=== PATIENT | female | born 1985 | race African-American/Black ===

== ENCOUNTER 2016-05-16 14:14 | Observation (INO) | payer MEDICAID ==
[~2016-05-16] VITALS: Ht 165.1 cm; Wt 84.8 kg
[2016-05-16 14:31] VITALS: BP 127/80
== END 2016-05-16 18:01 | disposition home or self-care (01) | DRG 566 ==
LOC: ER 14:16 → INTOOBSV 14:30 → LDRP 14:30 → ER 14:35 → LDRP 16:15
PROVIDERS: ADMIT Specialist; ATTEND Specialist
DX: O26.893 Other specified pregnancy related conditions, third trimester (principal); O62.9 Abnormality of forces of labor, unspecified; M54.9 Dorsalgia, unspecified; R10.9 Unspecified abdominal pain; Z3A.37 37 weeks gestation of pregnancy; W19.XXXA Unspecified fall, initial encounter; Y93.89 Activity, other specified; Y92.89 Other specified places as the place of occurrence of the external cause; Y99.8 Other external cause status
CPT/HCPCS: 59025; 76815; 81002; 99285; G0378

== ENCOUNTER 2016-06-07 11:05 | Inpatient (IN) | payer MEDICAID ==
[~2016-06-07] VITALS: Ht 1 cm; Wt 86.6 kg
[2016-06-07] MEDS ORDERED: LACT. RINGERS/OXYTOCIN 20UNITS 1,000 ML IV SCH (12:03)
[2016-06-07] MEDS ORDERED: WITCH HAZEL-GLYCERIN PAD TOP PRN (12:15)
[2016-06-07] MEDS ORDERED: LIDOCAINE 2%HCL (LOCAL ANESTH.) INJ 20ML MDV IJ ONE ×2 (12:15→22:30)
[2016-06-07] MEDS ORDERED: NALBUPHINE HCL 10 MG/1ml INJECTION IV PRN (12:15)
[2016-06-07] MEDS ORDERED: PHISODERM TOP SOLN 240ML BTL TOP PRN (12:15)
[2016-06-07] MEDS ORDERED: DERMOPLAST 60ML BOTTLE TOP PRN (12:15)
[2016-06-07 13:31] LABS: Basophils # (auto) 0 uL; Basophils % (auto) 0.7 % (0.0-2.0); Eosinophils # (auto) 0 uL; Eosinophils % (auto) 0.3 % (0.0-7.0); Hematocrit 30.1 % (36.0-46.0); Hemoglobin 9.9 g/dL (12.2-16.2); Lymphocytes # (auto) 1.4 uL; Lymphocytes % (auto) 20.5 % (10.0-50.0); Mean Corpuscular Hemoglobin 28.1 pg (28.0-32.0); Mean Corpuscular Hgb Conc. 32.9 g/dL (32.0-36.0); Mean Corpuscular Volume 85.4 fL (80.0-100.0); Mean Platelet Volume 8.3 fL (7.4-10.4); Monocytes # (auto) 0.6 uL; Monocytes % (auto) 8.9 % (0.0-12.0); Neutrophils # (auto) 4.6 uL; Neutrophils % (auto) 69.6 % (37.0-80.0); Platelet Count (auto) 218 10^3/uL (140-450); Red Cell Distribution Width 14.2 % (11.6-16.0); White Blood Cell 6.6 10^3/uL (4.4-10.8)
[2016-06-07 13:45] LABS: Partial Thromboplastin Time 25.3 sec (22.64-33.71); Prothrombin Time 9.6 sec (9.37-12.3)
[2016-06-07 13:46] LABS: INR 0.89 (0.9-1.15)
[2016-06-07 14:14] LABS: BUN/Creatinine Ratio 10.2; Potassium 3.7 mmol/L (3.5-5.1)
[2016-06-07 14:15] LABS: Albumin 2.3 g/dL (3.4-5.0); Bilirubin, Total 0.3 mg/dL (0.2-1.0); Calcium 7.9 mg/dL (8.5-10.1); Total Protein 6.6 g/dL (6.4-8.2)
[2016-06-07] MEDS ORDERED: PENICILLIN G POT 5MIL/D5 50ML 50 ML IV ONE ×2 (14:29→14:30)
[2016-06-07] MEDS: PENICILLIN G POTASSIUM 2,500,000 UNITS in D5W 5% 50 ML IV SCH ×2 (18:46→22:30)
[2016-06-07 19:10] LABS: Urine Bilirubin Negative (Negative); Urine Blood Negative /uL (Negative); Urine Color Yellow (Yellow); Urine Glucose Normal (Normal); Urine Nitrite Negative (Negative); Urine RBC 3 /hpf (0 - 4); Urine Squamous Epithelial Cell MOD /hpf (<5); Urine Urobilinogen Normal (Negative); Urine pH 6.5 (5.0-8.0)
[2016-06-07 19:11] LABS: Urine Ketone 1+ (Negative)
[2016-06-07] MEDS: LACTATED RINGER'S 1,000 ML IV SCH (21:40)
[2016-06-07] MEDS ORDERED: METHYLERGONOVINE MALEATE 0.2 MG/ML AMP IM PRN (22:30)
[2016-06-07] MEDS ORDERED: CARBOPROST TROMETHAMINE 250 MCG/1ML VIAL IM PRN (22:30)
[2016-06-07] MEDS ORDERED: BUTORPHANOL TARTRATE 2 MG/1 ML VIAL IV PRN (23:15)
[2016-06-08] MEDS ORDERED: IBUPROFEN 600 MG TAB PO ONE (02:09)
[2016-06-08] MEDS: PENICILLIN G POTASSIUM 2,500,000 UNITS in D5W 5% 50 ML IV SCH (02:30)
[2016-06-08] MEDS ORDERED: LACT. RINGERS/OXYTOCIN 20UNITS 500 ML IV ONE (02:38)
[2016-06-08 03:20] VITALS: BP 117/69
[2016-06-08] MEDS ORDERED: LACT. RINGERS/OXYTOCIN 20UNITS 1,000 ML IV SCH (03:38)
[2016-06-08] MEDS: LACTATED RINGER'S 1,000 ML IV SCH ×2 (04:03→12:03)
[2016-06-08] MEDS: ACETAMINOPHEN 325 MG TAB PO PRN ×2 (05:29→12:26)
[2016-06-08 06:49] VITALS: BP 119/78
[2016-06-08] MEDS ORDERED: FERR-7 PO (08:08)
[2016-06-08] MEDS ORDERED: PREN-96 PO (08:08)
[2016-06-08] MEDS: IBUPROFEN 600 MG TAB PO PRN ×3 (08:36→21:38)
[2016-06-08] MEDS ORDERED: LIDOCAINE 2%HCL (LOCAL ANESTH.) INJ 20ML MDV ONE (11:36)
[2016-06-08] MEDS ORDERED: WITCH HAZEL-GLYCERIN PAD TOP ONE (11:37)
[2016-06-08] MEDS ORDERED: PHISODERM TOP SOLN 240ML BTL TOP ONE (11:37)
[2016-06-08] MEDS ORDERED: LACT. RINGERS/OXYTOCIN 20UNITS 1,000 ML IV ONE (11:37)
[2016-06-08 12:11] VITALS: BP 108/73
[2016-06-08 16:14] VITALS: BP 114/74
[2016-06-08 19:30] VITALS: BP 120/77
[2016-06-08 23:20] VITALS: BP 120/66
[2016-06-09 03:21] VITALS: BP 113/74
[2016-06-09 08:00] VITALS: BP 118/68
[2016-06-09] MEDS: LACTATED RINGER'S 1,000 ML IV SCH (10:30)
== END 2016-06-09 11:00 | disposition home or self-care (01) | DRG 560 ==
LOC: OBSVTOIN 11:05 → LDRP 11:05
PROVIDERS: ADMIT Specialist; ATTEND Specialist
PROC: 10907ZC Drainage of Amniotic Fluid, Therapeutic from Products of Conception, Via Natural or Artificial Opening (ICD-10-PCS; principal; 2016-06-08)
PROC: 10E0XZZ Delivery of Products of Conception, External Approach (ICD-10-PCS; 2016-06-08)
PROC: 0HQ9XZZ Repair Perineum Skin, External Approach (ICD-10-PCS; 2016-06-08)
PROC: 3E033VJ Introduction of Other Hormone into Peripheral Vein, Percutaneous Approach (ICD-10-PCS; 2016-06-08)
DX: O48.0 Post-term pregnancy (principal); O99.824 Streptococcus B carrier state complicating childbirth; O70.0 First degree perineal laceration during delivery; Z37.0 Single live birth; Z3A.40 40 weeks gestation of pregnancy
CPT/HCPCS: 36415; 59025; 59409; 80053; 81001; 85025; 85610; 85730; 86850; 86900; 86901; 96365; 96366; 96375; G0378; J2540; J2590; J7060

== ENCOUNTER 2016-07-16 16:51 | Emergency (ER) | payer MEDICAID ==
[~2016-07-16] VITALS: Ht 165.1 cm; Wt 70.8 kg
[~2016-07-16 16:51] MED LIST: FERR-7 PO; PREN-96 PO
[2016-07-16 20:23] VITALS: BP 102/74
[2016-07-16] MEDS ORDERED: ACETAMINOPHEN 500 MG TAB PO ONE (21:00)
== END 2016-07-16 21:29 | disposition home or self-care (01) ==
LOC: ER 16:53
DX: R51 Headache (principal)
CPT/HCPCS: 70450

== ENCOUNTER 2017-07-12 11:47 | Emergency (ER) | payer SELFPAY ==
[~2017-07-12] VITALS: Ht 165.1 cm; Wt 70.3 kg
[2017-07-12 12:52] LABS: Basophils # (auto) 0 uL; Basophils % (auto) 0.7 % (0.0-2.0); Eosinophils # (auto) 0 uL; Eosinophils % (auto) 0.7 % (0.0-7.0); Hematocrit 40.8 % (36.0-46.0); Hemoglobin 13.6 g/dL (12.2-16.2); Lymphocytes # (auto) 1.5 uL; Lymphocytes % (auto) 21.8 % (10.0-50.0); Mean Corpuscular Hemoglobin 29.4 pg (28.0-32.0); Mean Corpuscular Hgb Conc. 33.3 g/dL (32.0-36.0); Mean Corpuscular Volume 88.4 fL (80.0-100.0); Monocytes # (auto) 0.7 uL; Monocytes % (auto) 9.4 % (0.0-12.0); Neutrophils # (auto) 4.8 uL; Neutrophils % (auto) 67.4 % (37.0-80.0); Nucleated Red Blood Cells % 0.2 %; Platelet Count (auto) 266 10^3/uL (140-450); Red Blood Cells 4.62 10^6/uL (4.0-5.20); Red Cell Distribution Width 13.8 % (11.8-14.3); White Blood Cell 7.1 10^3/uL (4.4-10.8)
[2017-07-12 13:20] VITALS: BP 111/83
== END 2017-07-12 13:22 | disposition home or self-care (01) ==
LOC: ER 11:50
DX: O36.4XX0 Maternal care for intrauterine death, not applicable or unspecified (principal); Z3A.15 15 weeks gestation of pregnancy
CPT/HCPCS: 36415; 76801; 84702; 85025

== ENCOUNTER 2017-07-13 09:39 | Emergency (ER) | payer SELFPAY ==
[~2017-07-13] VITALS: Ht 165.1 cm; Wt 70.3 kg
[2017-07-13] MEDS ORDERED: SODIUM CHLORIDE 0.9% 1,000 ML IV ONE (14:46)
[2017-07-13 15:26] LABS: BUN/Creatinine Ratio 14.1; Calcium 8.6 mg/dL (8.5-10.1); Potassium 4.8 mmol/L (3.5-5.1)
[2017-07-13 15:41] LABS: INR 0.93 (0.9-1.15); Partial Thromboplastin Time 28.7 sec (23.78-33.04)
[2017-07-13 15:53] LABS: Urine Blood Negative /uL (Negative); Urine Specific Gravity 1.023 (1.001-1.035); Urine WBC 1 /hpf (0 - 5)
[2017-07-13 15:54] LABS: Urine Bacteria FEW /hpf (None Seen); Urine Mucus FEW (None Seen)
[2017-07-13] MEDS ORDERED: cefTRIAXone 1GM/10ml IVPUSH 10 ML IV ONE (17:00)
[2017-07-13 17:16] VITALS: BP 113/55
== END 2017-07-13 18:27 | disposition home or self-care (01) ==
LOC: ER 09:42
DX: O03.9 Complete or unspecified spontaneous abortion without complication (principal); O36.4XX0 Maternal care for intrauterine death, not applicable or unspecified; Z3A.15 15 weeks gestation of pregnancy
CPT/HCPCS: 36415; 80048; 81001; 85610; 85730; 96361; 96374

== ENCOUNTER 2017-08-04 22:23 | Emergency (ER) | payer MEDICAID ==
[~2017-08-04] VITALS: Ht 165.1 cm; Wt 72.6 kg
[2017-08-04 23:11] LABS: Basophils # (auto) 0.1 uL; Basophils % (auto) 0.4 % (0.0-2.0); Eosinophils # (auto) 0.1 uL; Eosinophils % (auto) 0.3 % (0.0-7.0); Hematocrit 35.4 % (36.0-46.0); Hemoglobin 11.8 g/dL (12.2-16.2); Lymphocytes # (auto) 2.3 uL; Lymphocytes % (auto) 13.6 % (10.0-50.0); Mean Corpuscular Hemoglobin 28.8 pg (28.0-32.0); Mean Corpuscular Hgb Conc. 33.3 g/dL (32.0-36.0); Mean Corpuscular Volume 86.5 fL (80.0-100.0); Monocytes # (auto) 0.9 uL; Monocytes % (auto) 5.4 % (0.0-12.0); Neutrophils # (auto) 13.5 uL; Neutrophils % (auto) 80.3 % (37.0-80.0); Platelet Count (auto) 246 10^3/uL (140-450); Red Blood Cells 4.09 10^6/uL (4.0-5.20); Red Cell Distribution Width 13.2 % (11.8-14.3); White Blood Cell 16.9 10^3/uL (4.4-10.8)
[2017-08-04 23:24] LABS: INR 0.98 (0.9-1.15); Partial Thromboplastin Time 22.2 sec (23.78-33.04); Prothrombin Time 10.5 sec (9.27-12.13)
[2017-08-04 23:26] LABS: Albumin 3.3 g/dL (3.4-5.0); BUN/Creatinine Ratio 17.4; Calcium 8.1 mg/dL (8.5-10.1); Potassium 3.5 mmol/L (3.5-5.1)
[2017-08-04 23:29] LABS: Bilirubin, Total 0.3 mg/dL (0.2-1.0); Total Protein 6.8 g/dL (6.4-8.2)
[2017-08-04] MEDS ORDERED: ONDANSETRON HCL 4 MG/2 ML VIAL IV ONE (23:30)
[2017-08-04] MEDS ORDERED: NALBUPHINE HCL 10 MG/1ml INJECTION IV ONE (23:30)
[2017-08-05] MEDS ORDERED: ONDANSETRON HCL 4 MG/2 ML VIAL IV ONE (00:30)
[2017-08-05] MEDS ORDERED: METHYLERGONOVINE MALEATE 0.2 MG/ML AMP IM ONE (00:30)
[2017-08-05] MEDS ORDERED: cefTRIAXone 1GM/10ml IVPUSH 10 ML IV ONE (00:30)
[2017-08-05 01:17] LABS: Basophils # (auto) 0 uL; Basophils % (auto) 0.2 % (0.0-2.0); Eosinophils # (auto) 0 uL; Hematocrit 26.7 % (36.0-46.0); Hemoglobin 8.9 g/dL (12.2-16.2); Lymphocytes # (auto) 1.2 uL; Lymphocytes % (auto) 8.7 % (10.0-50.0); Mean Corpuscular Hemoglobin 29.2 pg (28.0-32.0); Mean Corpuscular Hgb Conc. 33.4 g/dL (32.0-36.0); Mean Corpuscular Volume 87.3 fL (80.0-100.0); Monocytes # (auto) 0.7 uL; Monocytes % (auto) 4.8 % (0.0-12.0); Neutrophils # (auto) 11.8 uL; Neutrophils % (auto) 86.3 % (37.0-80.0); Platelet Count (auto) 173 10^3/uL (140-450); Red Blood Cells 3.06 10^6/uL (4.0-5.20); White Blood Cell 13.7 10^3/uL (4.4-10.8)
[2017-08-05 01:30] LABS: INR 1.07 (0.9-1.15); Partial Thromboplastin Time 23.6 sec (23.78-33.04); Prothrombin Time 11.4 sec (9.27-12.13)
[2017-08-05 03:31] VITALS: BP 102/52
== END 2017-08-05 04:31 | disposition home or self-care (01) ==
LOC: ER 22:23
DX: O03.9 Complete or unspecified spontaneous abortion without complication (principal)
CPT/HCPCS: 36415; 76856; 80053; 84702; 85025; 85610; 85730; 86850; 86900; 86901; 96372; 96374; 96375; 96376; 99285; J2210; J2300; J2405; J7030

== ENCOUNTER → 2017-08-08 | Outpatient (CLI) | payer MEDICAID | END | disposition home or self-care (01) | LOC: LAB 11:49 | PROVIDERS: ATTEND Specialist | DX: N91.2 Amenorrhea, unspecified (principal) | CPT/HCPCS: 36415; 84702 ==